=== PATIENT | female | born 1975 ===

== ENCOUNTER → 2017-01-07 | Outpatient (CLI) | payer BC, OTHER ==
[2017-01-07 14:40] LABS: ALT/SGPT 25 U/L (12-78); BLOOD UREA NITROGEN 13 mg/dl (7-18); BUN/CREATININE RATIO 20.6 (10-20); CARBON DIOXIDE 24 mmol/L (21-32); CHLORIDE 104 mmol/L (98-107); CREATININE 0.62 mg/dl (0.60-1.20); GLUCOSE 82 mg/dl (70-99); POTASSIUM 3.8 mmol/L (3.5-5.1); SODIUM 136 mmol/L (136-145)
[2017-01-07 14:50] LABS: ALB/GLOB RATIO 0.9 (0.9-2); ALKALINE PHOSPHATASE 87 U/L (45-117); AST/SGOT 20 U/L (15-37)
== END | disposition home or self-care (01) ==
LOC: C.LABSPEC 14:14
PROVIDERS: ATTEND Family Medicine
DX: R60.0 Localized edema (principal)

== ENCOUNTER → 2017-01-30 | Outpatient (CLI) | payer BC ==
[2017-01-30 14:18] LABS: ALT/SGPT 25 U/L (12-78); BLOOD UREA NITROGEN 14 mg/dl (7-18); BUN/CREATININE RATIO 19.6 (10-20); CALCIUM 8.5 mg/dl (8.5-10.1); CARBON DIOXIDE 27 mmol/L (21-32); CHLORIDE 106 mmol/L (98-107); CREATININE 0.72 mg/dl (0.60-1.20); GLUCOSE 84 mg/dl (70-99); SODIUM 140 mmol/L (136-145)
[2017-01-30 14:28] LABS: ALB/GLOB RATIO 0.8 (0.9-2); ALKALINE PHOSPHATASE 85 U/L (45-117); AST/SGOT 20 U/L (15-37)
== END | disposition home or self-care (01) ==
LOC: C.LABSPEC 13:42
PROVIDERS: ATTEND Family Medicine
DX: R60.0 Localized edema (principal)

== ENCOUNTER → 2017-06-12 | Outpatient (CLI) | payer BC ==
[2017-06-12 13:22] LABS: BASO % 0.3 %; BASO ABS # 0.03 K/uL (0-0.2); COMPLETE YES; EOS % 1.4 %; HEMATOCRIT 36.6 % (37-47); IG% 0.1 %; LYMPH % 31.3 %; LYMPH ABS # 2.71 K/uL (1.2-3.4); MEAN CELL VOLUME 88.6 fL (80-100); MEAN CORPUSCULAR HEMOGLOBIN 29.5 pg (25-34); MEAN CORPUSCULAR HGB CONC 33.3 g/dl (32-36); MEAN PLATELET VOLUME 10.3 fL (7.4-10.4); NEUT % 60.9 %; PLATELET COUNT 262 K/uL (130-400); RED BLOOD COUNT 4.13 M/uL (4.2-5.4); WHITE BLOOD COUNT 8.65 K/uL (4.8-10.8)
[2017-06-12 13:33] LABS: ALT/SGPT 20 U/L (12-78); BLOOD UREA NITROGEN 11 mg/dl (7-18); BUN/CREATININE RATIO 14.5 (10-20); CARBON DIOXIDE 29 mmol/L (21-32); CHLORIDE 105 mmol/L (98-107); CREATININE 0.77 mg/dl (0.60-1.20); GLUCOSE 84 mg/dl (70-99); POTASSIUM 4.2 mmol/L (3.5-5.1); SODIUM 138 mmol/L (136-145)
[2017-06-12 13:43] LABS: ALKALINE PHOSPHATASE 81 U/L (45-117); AST/SGOT 20 U/L (15-37); RHEUMATOID FACTOR < 10.0 U/mL (0-15)
[2017-06-12 13:55] LABS: LYME DISEASE AB IGG NEG (NEG); LYME DISEASE AB IGM NEG (NEG)
== END | disposition home or self-care (01) ==
LOC: C.LABSPEC 12:53
PROVIDERS: ATTEND Family Medicine
DX: M25.50 Pain in unspecified joint (principal); R60.0 Localized edema; E03.9 Hypothyroidism, unspecified